=== PATIENT | male | born 1960 | race Caucasian/White ===

== ENCOUNTER 2023-05-25 15:22 | Emergency (ER) | payer SELFPAY ==
[~2023-05-25] VITALS: Ht 162.6 cm; Wt 86.0 kg
[2023-05-25 15:37] VITALS: O2SAT 95
[2023-05-25 18:55] VITALS: BP 108/89; PULSE 86; RESP 18; TEMP 98
== END 2023-05-25 18:57 | disposition home or self-care (01) ==
LOC: ER 15:22 → EDBD 15:22 → ER 18:57
DX: F10.129 Alcohol abuse with intoxication, unspecified (principal); R41.82 Altered mental status, unspecified; Y90.9 Presence of alcohol in blood, level not specified
CPT/HCPCS: 99283